=== PATIENT | male | born 1975 | race Caucasian/White ===

== ENCOUNTER 2019-09-03 05:13 | Day surgery (SDC) | payer BC, OTHER ==
[~2019-09-03] VITALS: Ht 188 cm; Wt 117.9 kg
[~2019-09-03 05:13] MED LIST: FISH OIL 1,0001 CA1 PO; GLUCOPHAGE1000 MG PO; LIPITOR20 MG PO; LISINOPRIL40 MG PO
[2019-09-03 05:40] LABS: HEMATOCRIT 44.4 % (42.0-54.0); HEMOGLOBIN 14.4 g/dL (13.5-17.5); MCH 28.7 pg (26.0-34.0); MCHC 32.4 g/dL (31.0-37.0); MCV 88.4 fL (80.0-100.0); RBC 5.02 10x6/uL (4.20-6.10); RDW 18.3 % (11.5-14.5); WBC 6.8 10x3/uL (4.8-10.8)
[2019-09-03 06:39] LABS: CALC OSMOLALITY 281 mosm/kg (275-300); CALCIUM 8.8 mg/dL (8.5-10.1); CARBON DIOXIDE 24.9 mmol/L (21.0-32.0); CHLORIDE - SERUM 106 mmol/L (98-107); CREATININE - SERUM 1.1 mg/dL (0.6-1.3); GLUCOSE 93 mg/dL (74-106); POTASSIUM - SERUM 4.1 mmol/L (3.5-5.1); SODIUM 142 mmol/L (136-145); UREA NITROGEN 11 mg/dL (7-18); eGFR NON AFRICAN AMERICAN 78 mL/min (90-120)
[2019-09-03 06:46] VITALS: BP 134/83; Ht 188 cm; Wt 117.9 kg
--- NOTE | 2019-09-03 09:19 | NUR ---
PATIENT PREVIOUSLY FELL PRIOR TO SURGERY. RIGHT FOREHEAD OPEN WOUND NOTED. L MID AXILLARY BRUISE NOTED. WILL CONTINUE POC.
--- NOTE | 2019-09-04 10:15 | OP ---
PATIENT NAME: JULIETA DOTSON MEDICAL RECORD: [id number] :77 LOCATION:[facility] ADMISSION DATE: SURGEON: AMELIA LARA MD DATE OF OPERATION: 09/03/2019 PREOPERATIVE DIAGNOSES: 1. Rotator cuff tear of the right shoulder. 2. Impingement syndrome of the right shoulder. POSTOPERATIVE DIAGNOSES: 1. Rotator cuff tear of the right shoulder. 2. Impingement syndrome of the right shoulder. PROCEDURES: 1. Arthroscopic rotator cuff repair of the right shoulder. 2. Arthroscopic distal clavicle excision done through separate incision. 3. Arthroscopic subacromial decompression with acromioplasty and bursectomy. SURGEON: Amelia Lara MD ANESTHESIA: General. INTRAOPERATIVE COMPLICATIONS: None. SUMMARY OF PATHOLOGIC FINDINGS: The patient had a full thickness rotator cuff tear of the supraspinatus tendon, albeit small; however, it was full thickness. OPERATIVE SUMMARY IN DETAIL: After obtaining the appropriate preoperative orthopedic surgery consent as well as anesthetic consultation, evaluation and clearance, the patient was brought to the operating room and placed on the operating table in supine position. After general laryngeal mask airway was administered, the patient was placed in left lateral decubitus position. All pressure points were well padded to include down leg peroneal pad as well as axillary roll. The patient was held firmly to the operating table using the vacuum pack suction system. Right upper extremity and shoulder were then prepped and draped in routine sterile fashion. The arm was held in the [employer] traction boom at 30 degrees for forward flexion, 30 degrees of abduction with 10 pounds of traction laterally. Arthroscopy was established in glenohumeral joint from a posterior portal. Anterior portal was established in the anterior safe interval. Diagnostic arthroscopy of the patient's glenohumeral joint showed well maintained articular surfaces, no labral pathology and very minimal biceps tendonitis. Attention was then turned to the subacromial space. While in the subacromial space, accessory lateral portal was created. [place] tissue ablation system was utilized to denude the undersurface of the acromion of all soft tissue elements. A 5.0 barrel bur was then used to perform acromioplasty to the level of acromioclavicular joint. Having completed this, attention was turned to the distal clavicle. Distal clavicle was excised for 1 cm under direct arthroscopic visualization using a separate anterior portal, having completed this, attention was turned to the rotator cuff tear after taking down all of the patient's subacromial bursa. Footprint for the supraspinatus tendon was decorticated. A single FiberTape was passed in an inverted mattress style fashion anchored laterally with a 4.75 SwiveLock from [employer]. Having completed this, arthroscopy portals were closed in routine interrupted fashion using 4-0 Prolene. Sterile dressings were applied. The OPERATIVE REPORT [id number] JULIETA DOTSON patient was awakened and taken to the recovery room in stable condition. All final needle and sponge counts were correct. TRANSINT:[id number] Voice Confirmation ID: [id number] DOCUMENT ID: [id number] MARCO MOTA, AMELIA MAN at 1015 CC: [id number] DICTATION DATE: 09/03/19 1109 [facility] OPERATOR: 09/03/19 1142 [facility] 09/03/19 [id number] [place] [address]
== END 2019-09-03 11:15 | disposition home or self-care (01) ==
LOC: D.OPS 05:13 → D.PAN 07:45 → D.OPS 07:45 → D.PAN 08:15 → D.OPS 11:15
PROVIDERS: Anesthesiology; ATTEND Orthopaedic Surgery
DX: M75.101 Unspecified rotator cuff tear or rupture of right shoulder, not specified as traumatic (principal); M75.41 Impingement syndrome of right shoulder; X58.XXXA Exposure to other specified factors, initial encounter